=== PATIENT | male | born 1965 | race Two or more races ===

== ENCOUNTER 2024-03-25 03:03 | Outpatient (REF) | payer MEDICARE, MEDICAID, SELFPAY ==
[2024-03-25 03:32] LABS: Ammonia 39 umol/L (11-32)
== END 2024-03-25 03:04 | disposition home or self-care (01) ==
LOC: LAB 03:03
DX: K74.60 Unspecified cirrhosis of liver (principal)
CPT/HCPCS: 36415; 82140